=== PATIENT | female | born 1945 | race Caucasian/White ===

== ENCOUNTER 2016-12-26 05:37 | Inpatient (IN) | payer OTHER ==
[2016-12-25 09:20] VITALS: BMI 33.3
--- NOTE | 2016-12-25 12:23 | PREOPHP ---
DATE OF ADMISSION: 12/26/2016 PREOPERATIVE HISTORY AND PHYSICAL AND INTERNAL MEDICINE CONSULTATION A patient of Dr. Mg. SURGERY DATE: 12/26/[address] Mg: Thank you for asking me to see Ms. Sanchez preoperatively. HISTORY OF PRESENT ILLNESS: She is a 71-year-old woman who is entering the hospital for lumbar surg raeann, specifically lumbar decompression and fusion at L4-L5 levels and possibly above or below depend ing on findings at surgery. PAST MEDICAL HISTORY: The patient is has been fairly well. She had an episode of what sounds to abebe ve been a stroke and ultimately got a stent placed in her carotid artery which has been replaced. S he continued to be on Plavix, although is off for a preoperative time. She takes medication for thy roid disease and hypertension. She has a history of hyperlipidemia and osteoporosis as well as her back problems. CURRENT MEDICATIONS: 1. Protonix 40 mg daily. 2. L-thyroxine 0.088 mg daily. 3. Crestor 20 mg daily. 4. Z tablets 10 mg 1/2 daily. 5. Losartan 50 mg daily. 6. Amlodipine 5 mg daily. She has stopped the aspirin, tramadol, and Fosamax. ALLERGIES: THERE ARE NO ALLERGIES. 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 There is no smoking history for the last 30 yea rs and before that smoked only occasionally. She was born in [place]. She is . There are 2 grown children. She will have some help in the house postoperatively. PAST SURGICAL HISTORY: Carotid endarterectomy as noted. Was repeated after 6 months because of blo ckage. She has had a tubal ligation, shoulder arthroscopy, and appendectomy. REVIEW OF SYSTEMS: Generally unremarkable. She sees her regular physician at [place]. She can walk and carry, and she can climb stairs slowly. She has had pulmonary function tests done at [facility] were evidently normal. She does have a history of hypertension and takes Protonix regularly for GERD. Other joints that bother her are knees, as noted, but she had a CVA with left-sided symptoms , more transient, have resolved completely. She has some residual tingling in the top of her feet a nd some sciatic symptoms down her right leg. : She has frequency and needs to change her pad rar kam. PHYSICAL EXAMINATION: GENERAL: Reveals an alert, pleasant lady in no acute distress. VITAL SIGS: She is 5 feet and 1/2 inch tall, weighs 175 pounds with a BMI of 33.6. Blood pressure is 130/80, pulse is 72 and regular. She is afebrile. HEAD, EYES, EARS, NOSE, AND THROAT: Unremarkable. CHEST: Chest is clear to percussion and auscultation. HEART: Sounds are regular. No murmurs are heard. I do not hear a carotid bruit. NECK: Thyroid is not significantly enlarged. ABDOMEN: Soft without palpable mass, organ, or tenderness. EXTREMITIES: No clubbing, cyanosis, edema. Good peripheral pulses. She has some mild weakness of her foot extensors, otherwise neurologically intact today. INITIAL IMPRESSION: 1. Preoperative status, laminectomy, fusion. 2. Spinal stenosis. 3. Spondylolisthesis. 4. Hypertension. 5. Hyperlipidemia. 6. Hypothyroidism. 7. Cerebrovascular disease. 8. Carotid stent, right side. DISCUSSION: At this time, her blood pressure is well controlled. She has no cardiac symptoms, and she has good neurological recovery. She appears at this point to be stable for planned surgery. Juanjose conde is off Plavix, aspirin, and NSAIDs. She could continue those after surgery when cleared by Dr. Arturo ren. Thank you for asking us to see her at this time. Dictated By: ROSALIA FLORES MD SR/NTS Conf#: [id number] DID#: [id number]
[2016-12-26] VITALS (18 sets, daily range): BP systolic 112–138; BP diastolic 54–76; PULSE 65–94; RESP 16–20; Ht 154.9 cm; Wt 79.1 kg
[~2016-12-26] VITALS: Ht 154.9 cm; Wt 79.1 kg
[~2016-12-26 05:37] MED LIST: CEFAZOLIN 2 GM/50 ML (PMX) 50 ML IVPB ONE; LACTATED RINGER'S 1,000 ML IV* SCH
[2016-12-26] MEDS ORDERED: BUPIVACAINE 0.25% (MPF) 30 ML INJ ONE (06:53)
[2016-12-26] MEDS ORDERED: THROMBIN 5000 UNIT VIAL ONE ×2 (06:53→08:19)
[2016-12-26] MEDS ORDERED: CA CHLORIDE 10% 10 ML SYRINGE ONE (06:53)
[2016-12-26] MEDS ORDERED: BUPIVACAINE 0.25%/EPI (SDV) 30 ML INJ ONE (06:53)
[2016-12-26] MEDS ORDERED: SURGIFOAM POWDER 1 GM KIT ONE ×2 (06:54→08:19)
[2016-12-26] MEDS ORDERED: GELATIN SIZE 100 SPONGE ONE (06:55)
[2016-12-26] MEDS ORDERED: HEPARIN 1000 UNITS/ML 10 ML INJ ONE (06:57)
[2016-12-26] MEDS ORDERED: PROPOFOL 20 ML ONE (06:59)
[2016-12-26] MEDS ORDERED: LIDOCAINE 2% (SDV) 5 ML INJ ONE (06:59)
[2016-12-26] MEDS ORDERED: ROCURONIUM 50 MG INJ ONE (06:59)
--- NOTE | 2016-12-26 07:01 | HPN ---
Date/Time of Note Date/Time of Note DATE: 12/26/16 TIME: 07:01 Interval H&P Admission Note Pt. seen H&P reviewed: No system changes DAMARIS HARMON MD December 26, 2016 07:01
[2016-12-26] MEDS ORDERED: GLYCOPYRROLATE 1 MG INJ ONE (07:04)
[2016-12-26] MEDS ORDERED: CEFAZOLIN 1 GM INJ ONE (07:05)
[2016-12-26] MEDS ORDERED: EZET10TA3 PO (07:09)
[2016-12-26] MEDS ORDERED: AMLO-145 PO (07:09)
[2016-12-26] MEDS ORDERED: LOSA50TA6 PO (07:09)
[2016-12-26] MEDS ORDERED: PANT40TA4 PO (07:09)
[2016-12-26] MEDS ORDERED: PANT20TA3 PO (07:09)
[2016-12-26] MEDS ORDERED: LEVO88TA3 PO (07:09)
[2016-12-26] MEDS ORDERED: ROSU40TA35 PO (07:11)
[2016-12-26] MEDS ORDERED: CLOP75TA28 PO (07:11)
[2016-12-26] MEDS ORDERED: CALC-223 PO (07:11)
[2016-12-26] MEDS ORDERED: CHOL500010 PO (07:26)
[2016-12-26] MEDS ORDERED: ASPI-664 PO (07:26)
[2016-12-26] MEDS ORDERED: ALEN70TA30 PO (07:26)
[2016-12-26] MEDS ORDERED: LORA-186 PO (07:26)
[2016-12-26] MEDS ORDERED: TRAM50TA2 PO (07:26)
[2016-12-26] MEDS ORDERED: CALCIUM (07:28)
[2016-12-26] MEDS ORDERED: CYCLOBENZAPRINE 10 MG TAB PO PRN (07:30)
[2016-12-26] MEDS ORDERED: NALOXONE (0.4 MG/ML) INJ IV PRN (07:30)
[2016-12-26] MEDS ORDERED: HYDROmorphONE 1 MG/ML SYG IV PRN (07:30)
[2016-12-26] MEDS ORDERED: CEPASTAT LOZENGE MT PRN (07:30)
[2016-12-26] MEDS ORDERED: DIPHENHYDRAMINE 25 MG CAP PO PRN (07:30)
[2016-12-26] MEDS ORDERED: DIPHENHYDRAMINE 50 MG INJ IV PRN ×2 (07:30→10:30)
[2016-12-26] MEDS ORDERED: BISACODYL 10 MG SUPP PR PRN (07:30)
[2016-12-26] MEDS ORDERED: ACETAMINOPHEN 325 MG TAB PO PRN (07:30)
[2016-12-26] MEDS ORDERED: AL HYDROX/MG HYDROX/SIMETH 30 ML CUP PO PRN (07:30)
[2016-12-26] MEDS ORDERED: HYDROmorphONE 2 MG/ML SYG ONE (07:43)
[2016-12-26] MEDS ORDERED: GELATIN SIZE 100 SPONGE TOP ONE (08:50)
[2016-12-26] MEDS ORDERED: hydrALAzine 20 MG INJ IV PRN (10:30)
[2016-12-26] MEDS ORDERED: MEPERIDINE 25 MG INJ IV PRN (10:30)
[2016-12-26] MEDS ORDERED: ONDANSETRON 4 MG INJ IV PRN (10:30)
[2016-12-26] MEDS ORDERED: METOCLOPRAMIDE 10 MG INJ IV PRN (10:30)
[2016-12-26] MEDS ORDERED: LABETALOL HCL 20MG INJ IV PRN (10:30)
[2016-12-26] MEDS ORDERED: EPHEDrine SULFATE 50 MG/5 ML SYG IV PRN (10:30)
[2016-12-26] MEDS ORDERED: HYDROmorphONE (0.2 MG/ML) 10ML SYG IV PRN ×3 (10:30)
[2016-12-26] MEDS ORDERED: FENTAnyl 50 MCG/ML VIAL IV PRN ×3 (10:30)
[2016-12-26] MEDS ORDERED: FENTAnyl 50 MCG/ML VIAL ONE (10:58)
[2016-12-26] MEDS ORDERED: DEXAMETHASONE 4 MG/ML 1 ML INJ ONE (11:22)
[2016-12-26] MEDS ORDERED: ONDANSETRON 4 MG INJ ONE (11:22)
[2016-12-26] MEDS: HYDROmorphONE 0.2 MG/ML PCA IV SCH (11:52)
--- NOTE | 2016-12-26 12:38 | CONS ---
Date/Time of Note Date/Time of Note DATE: 12/26/16 TIME: 12:34 Assessment/Plan Assessment/Plan Problems: (1) Status post lumbar laminectomy Status: Acute Comment: Her antiplatelet agents are on hold at the present time. When she is up and moving and ready as per direction from Dr. Mg will resume this. For now she is immediately postop and without evidence of untoward reactions. Continue treatment and observe closely (2) Hypothyroidism Status: Chronic Comment: Continue replacement therapy Qualifiers: Hypothyroidism type: acquired Qualified Code: E03.9 - Acquired hypothyroidism (3) Hyperlipidemia Status: Chronic Comment: Continue statin therapy Qualifiers: Hyperlipidemia type: pure hypercholesterolemia Qualified Code: E78.00 - Pure hypercholesterolemia (4) Essential hypertension Status: Chronic Comment: Continue outpatient therapy starting tomorrow (5) Allergic rhinitis Status: Chronic Comment: Quiescent at this time Qualifiers: Allergic rhinitis trigger: unspecified Allergic rhinitis seasonality: seasonal Qualified Code: J30.2 - Seasonal allergic rhinitis, unspecified allergic rhinitis trigger Consultation Date/Type/Reason Admit Date/Time December 26, 2016 at 05:37 Initial Consult Date 12/26/2016 Type of Consultation: Internal medicine Reason for Consultation Assistance with medical issues postop Referring Provider: DAMARIS MG MD 24 HR Interval Summary Free Text/Dictation Nubia 8-year-old female seen in recovery room postop. She is fully awake and alert and oriented 4. Person place time and situation Constitutional: no complaints Detailed Summary Eyes: no complaints Respiratory: no complaints Cardiovascular: no complaints Gastrointestinal: no complaints Genitourinary: no complaints Musculoskeletal: back pain (At surgical incision site) Exam/Review of Systems Vital Signs Vitals Vital Signs Date Time Temp Pulse Resp B/P Pulse Ox O2 Delivery O2 Flow Rate FiO2 12/26/16 12:06 78 19 117/61 99 Room Air 12/26/16 11:56 97.8 Exam Constitutional: alert, oriented Neck: non-tender, supple Respiratory: clear to auscultation, normal air movement Cardiovascular: nl pulses, regular rate and rhythm Extremities: normal pulses (Moving extremities without issue) Neurological: FUR TRIMMING MACHINE OPERATOR II-XII intact, nl mental status, nl speech, nl strength Medications Medications Current Medications Lactated Ringer's 1,000 ml @ 0 mls/hr Q0M IV* ; Start 12/26/16 at 05:00; Stop 12/26/16 at 19:00 Potassium Chloride/Dextrose/ Sod Cl (D5-1/2ns + KCl 20 Meq) 1,000 ml @ 100 mls/ hr Q10H IV ; Start 12/26/16 at 07:01 Acetaminophen/ Hydrocodone Bitart ([place] (10/325)) 1 tab Q4H PRN PO PAIN LEVEL 1-5; Start 12/28/16 at 10:00 Acetaminophen/ Hydrocodone Bitart ([place] (10325)) 2 tab Q4H PRN PO PAIN LEVEL 6-10; Start 12/28/16 at 10:00 Hydromorphone HCl 0.2 mg 0.2 mg Q1H PRN IV BREAKTHROUGH PAIN; Start 12/26/16 at 07:30 Cefazolin Sodium (Ancef 1 Gm/50 ml (Pmx)) 50 ml @ 100 mls/hr Q8H IVPB ; Start 12/26/16 at 07:30; Stop 12/26/16 at 23:59 Ondansetron HCl (Zofran Inj) 4 mg Q6H PRN IV NAUSEA AND/OR VOMITING; Start at 07:30 Bisacodyl (Dulcolax Supp) 10 mg DAILY PRN [place] CONSTIPATION; Start 12/26/16 at 07 :30 Docusate Sodium (Colace) 100 mg BID PO ; Start 12/26/16 at 09:00 Pantoprazole (Protonix Iv) 40 mg DAILY@06 IV ; Start 12/27/16 at 06:00 Al Hydrox/Mg Hydrox/Simethicone (Mag-Al Plus) 15 ml Q6H PRN PO CONSTIPATION/ DYSPEPSIA; Start 12/26/16 at 07:30 Acetaminophen (Tylenol Tab) 650 mg Q4H PRN PO MCGINNIS OR TEMP GREATER THAN 101.3F; Start 12/26/16 at 07:30 Ferrous Sulfate (Ferrous Sulfate (Ec)) 325 mg TID PO ; Start 12/26/16 at 09:00 Ascorbic Acid (Vitamin C) 1,000 mg DAILY PO ; Start 12/26/16 at 09:00 Cyclobenzaprine HCl (Flexeril) 10 mg TID PRN PO MUSCLE SPASMS; Start 12/26/16 at 07:30 Phenol (Cepastat Lozenge) 1 lozenge PRN PRN MT SORE THROAT; Start 12/26/16 at 07:30 Diphenhydramine HCl (Benadryl) 25 mg Q6H PRN PO ITCHING; Start 12/26/16 at 07: 30 Diphenhydramine HCl (Benadryl) 25 mg Q6H PRN IV ITCHING; Start 12/26/16 at 07: 30 Naloxone HCl (Narcan) 0.2 mg Q2M PRN IV RR 8 BREATHS/MIN OR LESS; Start at 07:30 Hydromorphone HCl (Dilaudid WEIGHTS AND MEASURES SEALER) WEIGHTS AND MEASURES SEALER to be started in PACU Q4PCA IV Last administered on 12/26/16t 11:52; Admin Dose 6 MG; Start 12/26/16 at 07:30; Stop 12/28/16 at 10:00 Miscellaneous Information 1. Hold WEIGHTS AND MEASURES SEALER at 1,000... WEIGHTS AND MEASURES SEALER IV ; Start 12/26/16 at 07: 30 TANO MOLINA MD December 26, 2016 12:38
[2016-12-26] MEDS: DOCUSATE SODIUM 100 MG CAP PO SCH ×2 (13:00→20:35)
[2016-12-26] MEDS: FERROUS SULFATE (EC) 325 MG TAB PO SCH ×2 (13:00→20:35)
[2016-12-26] MEDS: ASCORBIC ACID 500 MG TAB PO SCH (13:00)
[2016-12-26] MEDS: ONDANSETRON 4 MG INJ IV PRN (14:50)
--- NOTE | 2016-12-26 14:51 | RADRPT ---
PROCEDURE: Intraoperative radiograph consisting 5 views. CLINICAL INDICATION: Intraoperative radiograph. TECHNIQUE: 5 views including AP and lateral projections were performed. COMPARISON: No. FINDINGS: Pedicular screws attached posterior stabilization rods are identified at the level of L4-5 with a in terbody spacer. The vertebra appear anatomically aligned. IMPRESSION: 1. Status post L4-5 posterior spinal fusion with interbody spacer. 2. Fluoro time: 104.4 seconds mGy: 78.4. RPTAT:AAJJ Physician Ivy Date Time Electronically viewed and signed by Jabier Emerson Physician on 12/26/2016 14:50 /
[2016-12-26] MEDS: CEFAZOLIN 1 GM/50 ML (PMX) 50 ML IVPB SCH ×3 (14:54→22:57)
[2016-12-26] MEDS: D5W-0.45 NACL + KCL 20 MEQ 1,000 ML IV SCH ×2 (17:01→18:05)
--- NOTE | 2016-12-26 18:59 | OPR ---
DATE OF OPERATION: 12/26/2016 PREOPERATIVE DIAGNOSES: 1. L4 to L5 unstable degenerative spondylolisthesis with stenosis and radiculopathy. 2. Osteoporosis. 3. Body mass index 33. POSTOPERATIVE DIAGNOSES: 1. L4 to L5 unstable degenerative spondylolisthesis with stenosis and radiculopathy. 2. Osteoporosis. 3. Body mass index 33. IMPLANTS: 1. NeuroStructures Palladian pedicle screws, 5.5 x 40 mm at L4 and 6.5 x 40 mm at L5. 2. [place] TLIF 8 mm cage. 3. Fibergraft. PROCEDURE PERFORMED: 1. Pedicle screw placement bilaterally at L4 and L5. 2. Central decompressive laminectomy at L4 to L5 with decompression of L4 and L5 nerve roots for stenosis. 3. Bilateral Conklin-Cheney osteotomies at L4 to L5. 4. Cement augmentation of pedicle screws (kyphoplasty at L4 and L5). 5. TLIF at L4 to L5. 6. Placement of intervertebral biomechanical device x1. 7. Posterolateral fusion at L4 to L5. 8. Iliac crest bone marrow aspiration. 9. Use of autograft. 10. Use of allograft. 11. Use of C-arm fluoroscopy with interpretation without radiologist present. 12. Use of intraoperative neuromonitoring (3.5 hours). 13. Use of operative microscope. PRIMARY SURGEON: Yovani Mg MD MIS DIRECTOR: LEONARD Moy NEED FOR SECONDARY SCHOOL PRINCIPAL: During this spinal surgical procedure, my department assistant was used to retract and protect the spinal nerves and dural sac. My department assistant also employed the suction catheters to evacuate blood from the surgical field to improve visualization of the neural structures. The department assistant was medically necessary to facilitate the completion of the surgery in a safe and expeditious manner. State of [place] regulations, as well as hospital bylaws, preclude the use of non-licensed health care personnel, such as operating room technicians, to perform these functions. FINDINGS: Neuromonitoring at the start of the case revealed bilateral L3 amplitude down 30%, right L4 amplitude down 40%, right L5 amplitude down 40%. At the end of the case, nerve signals returned to normal. The patient had osteoporosis and unstable listhesis at L4 to L5 with central and foraminal stenosis. ESTIMATED BLOOD LOSS: 150 mL. DRAINS: 1. SPECIMENS: L4 to L5 disk was sent to pathology. COMPLICATIONS OF PROCEDURES: None. ANESTHESIOLOGIST: Dr. Chatman. TYPE OF ANESTHESIA: General. INDICATIONS FOR PROCEDURE: This is a 71-year-old female with lumbosacral radiculopathy in the setting of unstable listhesis at L4 to L5. Although there is mild adjacent disease, I felt that the majority of her symptoms are coming from the L4 to L5 level and therefore, I recommended the above procedure. Preoperatively we discussed the risks, benefits and alternatives. She understood and wished to proceed. DESCRIPTION OF PROCEDURE IN DETAIL: The patient was identified in the preoperative holding area, given IV antibiotics, and taken to the operating room , where she was successfully placed under general anesthesia. Neuromonitoring leads were placed. Sequential compression devices were applied. A Jeffries catheter was introduced. Neuromonitoring was utilized during the procedure for 3.5 hours to include SSEP, MEP, and EMG. This was performed by Apliiq. Start time was 8 a.m., closure time was 11:30 a.m. The patient was placed on the operating table in the prone position over a Gautam frame. All bony prominences were well padded. The back was then prepped and draped in the usual sterile fashion. Using the C-arm fluoroscope, I identified the incision site. I anesthetized the skin, subcutaneous tissue, and paraspinal musculature with 0.25% Marcaine and epinephrine. I then made an incision over the L4 to L5 level. Incision was taken down through dorsal fascia, which was incised with Bovie cautery. I then subperiosteally dissected the L4 and L5 lamina out to the transverse processes. I then took imaging studies to confirm the correct levels. Once this was confirmed, I identified the start hole for the pedicle screws. The patient had osteoporosis with a BMI of 33 complicating the procedure and adding at least 30 minutes to the surgical procedure. I made the dispatcher ship pilot holes for the pedicle screws at L4 and L5 bilaterally and tapped the screw holes. This provided a cavity into the vertebral bodies of L4 and L5, and I injected cement into the vertebral bodies of L4 and L5 (kyphoplasty at L4 and L5) in order to augment the screw and increase the purchase to decrease the risk of pullout given her severe osteoporosis. Once the cement was in place, I placed the appropriate pedicle screws bilaterally at L4 and L5. Once the screws were in place, I stimulated each of the screws and there was no evidence of cortical breach. I then performed a right iliac crest bone marrow aspiration. The blood was spun down using the Siklu device. Next, the microscope was brought in and a central decompressive laminectomy was performed at the L4 to L5 level. I decompressed the central canal and the L4 and L5 nerve roots bilaterally. This decompression was done in order to alleviate the stenosis and this is beyond what is required in order to perform an interbody fusion. The patient had an anterolisthesis that was not fully reduced and therefore, I performed bilateral Conklin-Cheney osteotomies at L4 to L5, removing the facet joints and pars in order to reduce the listhesis. Once this was done, I made an annulotomy from the right side and performed a radical diskectomy. I placed various trials and chose the appropriate graft height. I then took the PEEK cage, within which I placed allograft and I impacted the intervertebral biomechanical device into the L4 to L5 level to complete the fusion at this level. Next, the Gautam frame was let down. I irrigated the wound. Valsalva maneuver was performed and there was no leak of CSF, and the microscope was taken off the field. I then placed 40 mm rods bilaterally with tightening of the set screws. I then prepared the posterolateral gutters and placed local autograft and allograft for posterolateral fusion at L4 to L5 bilaterally. I then took final AP and lateral images and I was happy with placement of the hardware and alignment of the spine. The wound was irrigated. Valsalva maneuver was performed and there was no leak of CSF. I passed an epidural catheter through which I injected 100 mcg of fentanyl mixed with 2 mL of Marcaine 0.25% preservative-free, and the catheter was pulled. I took the platelet-poor plasma and mixed this with thrombin and injected this over the dura for hemostatic purposes. I then placed a deep subfascial drain and closed the deep fascia with a #1 Stratafix suture. I then closed the subcutaneous tissue with a 2-0 Vicryl stitch. A 4-0 Monocryl closure was then performed. Dermabond and sterile dressings were then applied. The patient was then awakened from anesthesia and taken to recovery room in stable condition. Lap, sponge, and instrument counts were correct x2. There were no apparent complications during the procedure. The patient will be admitted to the orthopedic caicedo for routine postoperative care to include pain control, neurovascular checks, antibiotics, and physical therapy. Dictated By: YOVANI AJMES/WAN Conf#: [id number] DID#: [id number] MTDD
[2016-12-26] MEDS: ROSUVASTATIN CALCIUM 40 MG TABLET PO SCH (20:35)
[2016-12-27] MEDS: D5W-0.45 NACL + KCL 20 MEQ 1,000 ML IV SCH ×4 (03:01→23:01)
[2016-12-27 04:13] VITALS: BP 117/62; PULSE 69; RESP 19
[2016-12-27 05:06] LABS: ADD SCAN DIFF NO
[2016-12-27 05:07] LABS: ABNORMAL IP MESSAGE 1; BASOPHILS % 0.1 % (0.0-2.0); HEMATOCRIT 31.1 % (37.0-47.0); LYMPHOCYTES # 0.6 10^3/ul (0.8-2.9); MEAN CORPUSCULAR HEMOGLOBIN 29.4 pg (29.0-33.0); MEAN CORPUSCULAR HGB CONC 32.2 g/dl (32.0-37.0); MEAN CORPUSCULAR VOLUME 91.5 fl (82.0-101.0); MEAN PLATELET VOLUME 9.6 fl (7.4-10.4); MONOCYTE # 0.6 10^3/ul (0.3-0.9); NEUTROPHIL # 10.5 10^3/ul (1.6-7.5); NEUTROPHILS % 89.5 % (39.0-77.0); PLATELET COUNT 286 10^3/UL (140-415); RED CELL DISTRIBUTION WIDTH 14.3 % (11.5-14.5); WHITE BLOOD COUNT 11.8 10^3/ul (4.8-10.8)
[2016-12-27 05:26] LABS: POTASSIUM 4.6 mmol/L (3.5-5.1)
[2016-12-27 05:35] LABS: CREATININE 0.94 mg/dl (0.44-1.00); MAGNESIUM 2.1 mg/dl (1.7-2.5)
[2016-12-27] MEDS ORDERED: PANTOPRAZOLE 40 MG INJ IV SCH (06:00)
[2016-12-27] MEDS: LEVOTHYROXINE 88 MCG TAB PO SCH (06:04)
[2016-12-27 08:04] VITALS: BP 124/67; RESP 19
--- NOTE | 2016-12-27 08:24 | OPPN ---
Date/Time of Note Date/Time of Note DATE: 12/27/16 TIME: 08:24 Post-Anesthesia Notes Post-Anesthesia Note Last documented vital signs Vital Signs Date Time Temp Pulse Resp B/P Pulse Ox O2 Delivery O2 Flow Rate FiO2 12/27/16 08:04 97.2 73 19 124/67 100 12/27/16 04:13 Nasal Cannula 2.0 Activity: WNL Respiratory function: WNL Cardiovascular function: WNL Mental status: Baseline Pain reasonably controlled: Yes Hydration appropriate: Yes Nausea/Vomiting absent: Yes FABIENNE ARDON December 27, 2016 08:24
--- NOTE | 2016-12-27 08:41 | PN ---
Date/Time of Note Date/Time of Note DATE: 12/27/16 TIME: 08:37 Assessment/Plan VTE Prophylaxis VTE Prophylaxis Intervention: SCD's Lines/Catheters IV Catheter Type (from Nrsg): Peripheral IV Urinary Cath still in place: Yes Subjective 24 Hr Interval Summary Free Text/Dictation 71 yr old woman first dfay post op back surgery awake alert, only moderate discomfort vs ok hx of hpb, lipids, hypothyroid, cva w carotid stent currently off plavix minimal amb yesterday, legs feel better still on geriatric physician on exam alert oriented lungs clear, hr ok, no edema, moves all four plan cont with increaing mobility as tolerates cont with current meds Exam/Review of Systems Vital Signs Vitals Vital Signs Date Time Temp Pulse Resp B/P Pulse Ox O2 Delivery O2 Flow Rate FiO2 12/27/16 08:04 97.2 73 19 124/67 100 12/27/16 04:13 Nasal Cannula 2.0 Intake and Output 12/26/16 12/26/16 12/27/16 15:00 23:00 07:00 Intake Total 1650 ml 500 ml 1850 ml Output Total 735 ml 600 ml 1720 ml Balance 915 ml -100 ml 130 ml Results Result Diagram: 12/27/16 0438 12/27/16 0438 Results 24 hrs Laboratory Tests Test 12/27/16 04:38 White Blood Count 11.8 H Red Blood Count 3.40 L Hemoglobin 10.0 L Hematocrit 31.1 L Mean Corpuscular Volume 91.5 Mean Corpuscular Hemoglobin 29.4 Mean Corpuscular Hemoglobin Concent 32.2 Red Cell Distribution Width 14.3 Platelet Count 286 Mean Platelet Volume 9.6 Neutrophils % 89.5 H Lymphocytes % 5.0 L Monocytes % 5.0 Eosinophils % 0.0 Basophils % 0.1 Nucleated Red Blood Cells % 0.0 Neutrophils # 10.5 H Lymphocytes # 0.6 L Monocytes # 0.6 Eosinophils # 0.0 Basophils # 0.0 Nucleated Red Blood Cells # 0.0 Sodium Level 137 Potassium Level 4.6 Chloride Level 107 Carbon Dioxide Level 21 Anion Gap 14 Blood Urea Nitrogen 19 Creatinine 0.94 Glucose Level 168 Calcium Level 8.0 L Magnesium Level 2.1 Medications Medications Current Medications Potassium Chloride/Dextrose/ Sod Cl (D5-1/2ns + KCl 20 Meq) 1,000 ml @ 100 mls/ hr Q10H IV Last administered on 12/27/16 04:06; Admin Dose 100 MLS/HR; Start 12/26/16 at 07:01 Acetaminophen/ Hydrocodone Bitart ([place] (10325)) 1 tab Q4H PRN PO PAIN LEVEL 1-5; Start 12/28/16 at 10:00 Acetaminophen/ Hydrocodone Bitart ([place] (10/325)) 2 tab Q4H PRN PO PAIN LEVEL 6-10; Start 12/28/16 at 10:00 Hydromorphone HCl (Dilaudid) 0.2 mg Q1H PRN IV BREAKTHROUGH PAIN; Start at 07:30 Ondansetron HCl (Zofran Inj) 4 mg Q6H PRN IV NAUSEA AND/OR VOMITING Last administered on 12/26/16 14:50; Admin Dose 4 MG; Start 12/26/16 at 07:30 Bisacodyl (Dulcolax Supp) 10 mg DAILY PRN [place] CONSTIPATION; Start 12/26/16 at 07 :30 Docusate Sodium (Colace) 100 mg BID PO Last administered on 12/26/16 20:35; Admin Dose 100 MG; Start 12/26/16 at 09:00 Pantoprazole (Protonix Iv) 40 mg DAILY@06 IV Last administered on 12/27/16 06: 04; Admin Dose 40 MG; Start 12/27/16 at 06:00 Al Hydrox/Mg Hydrox/Simethicone (Mag-Al Plus) 15 ml Q6H PRN PO CONSTIPATION/ DYSPEPSIA; Start 12/26/16 at 07:30 Acetaminophen (Tylenol Tab) 650 mg Q4H PRN PO MCGINNIS OR TEMP GREATER THAN 101.3F; Start 12/26/16 at 07:30 Ferrous Sulfate (Ferrous Sulfate (Ec)) 325 mg TID PO Last administered on 20:35; Admin Dose 325 MG; Start 12/26/16 at 09:00 Ascorbic Acid (Vitamin C) 1,000 mg DAILY PO ; Start 12/26/16 at 09:00 Cyclobenzaprine HCl (Flexeril) 10 mg TID PRN PO MUSCLE SPASMS; Start 12/26/16 at 07:30 Phenol (Cepastat Lozenge) 1 lozenge PRN PRN MT SORE THROAT Last administered on 12/26/16 20:37; Admin Dose 1 LOZENGE; Start 12/26/16 at 07:30 Diphenhydramine HCl (Benadryl) 25 mg Q6H PRN PO ITCHING Last administered on 22:58; Admin Dose 25 MG; Start 12/26/16 at 07:30 Diphenhydramine HCl (Benadryl) 25 mg Q6H PRN IV ITCHING; Start 12/26/16 at 07: 30 Naloxone HCl (Narcan) 0.2 mg Q2M PRN IV RR 8 BREATHS/MIN OR LESS; Start at 07:30 Hydromorphone HCl (Dilaudid WELDING MACHINE OPERATOR ULTRASONIC) WELDING MACHINE OPERATOR ULTRASONIC to be started in PACU Q4PCA IV Last administered on 12/26/16 11:52; Admin Dose 6 MG; Start 12/26/16 at 07:30; Stop 12/28/16 at 10:00 Miscellaneous Information 1. Hold WELDING MACHINE OPERATOR ULTRASONIC at 1,000... WELDING MACHINE OPERATOR ULTRASONIC IV ; Start 12/26/16 at 07: 30 Amlodipine Besylate (Norvasc) 5 mg DAILY PO ; Start 12/27/16 at 09:00 Cholecalciferol (Vitamin D) 5,000 unit DAILY PO ; Start 12/27/16 at 09:00 EZETIMIBE (Zetia) 10 mg DAILY PO ; Start 12/27/16 at 09:00 Loratadine (Claritin) 10 mg DAILY PO ; Start 12/27/16 at 09:00 Losartan Potassium (Cozaar) 50 mg DAILY PO ; Start 12/27/16 at 09:00 Pantoprazole (Protonix Tab) 40 mg DAILY PO ; Start 12/27/16 at 09:00 Rosuvastatin Calcium (Crestor) 40 mg QHS PO Last administered on 12/26/16 20: 35; Admin Dose 40 MG; Start 12/26/16 at 21:00 ROSALIA FLORES MD December 27, 2016 08:41
[2016-12-27] MEDS: FERROUS SULFATE (EC) 325 MG TAB PO SCH ×3 (09:00→19:51)
[2016-12-27] MEDS: PANTOPRAZOLE (EC) 40 MG TAB PO SCH (09:38)
[2016-12-27] MEDS: LORATADINE 10 MG TAB PO SCH (09:39)
[2016-12-27] MEDS: CHOLECALCIFEROL 1,000 UNIT TAB PO SCH (09:39)
[2016-12-27] MEDS: DOCUSATE SODIUM 100 MG CAP PO SCH ×2 (09:39→19:51)
[2016-12-27] MEDS: ASCORBIC ACID 500 MG TAB PO SCH (09:40)
[2016-12-27] MEDS: AMLODIPINE 5 MG TAB PO SCH (09:40)
[2016-12-27] MEDS: EZETIMIBE 10 MG TAB PO SCH (09:40)
[2016-12-27] MEDS: LOSARTAN 50 MG TAB PO SCH (09:40)
--- NOTE | 2016-12-27 10:05 | PN ---
Date/Time of Note Date/Time of Note DATE: 12/27/16 TIME: 10:04 Assessment/Plan Lines/Catheters IV Catheter Type (from Nrsg): Peripheral IV Rey in Place (from Nrsg): Yes Assessment/Plan Assessment/Plan doing well cont pain control and pt d/c geochemical laboratory technician and rey tomorrow Subjective 24 Hr Interval Summary c/o pain in back, improved nausea Exam/Review of Systems Vital Signs Vitals Vital Signs Date Time Temp Pulse Resp B/P Pulse Ox O2 Delivery O2 Flow Rate FiO2 12/27/16 08:04 97.2 73 19 124/67 100 12/27/16 04:13 Nasal Cannula 2.0 Intake and Output 12/26/16 12/26/16 12/27/16 15:00 23:00 07:00 Intake Total 1650 ml 500 ml 1850 ml Output Total 735 ml 600 ml 1720 ml Balance 915 ml -100 ml 130 ml Exam Free Text/Dictation nvi Results Result Diagram: 12/27/16 0438 12/27/16 0438 DAMARIS HARMON MD December 27, 2016 10:05
[2016-12-27] MEDS: HYDROmorphONE 0.2 MG/ML PCA IV SCH (14:59)
[2016-12-27] MEDS: ROSUVASTATIN CALCIUM 40 MG TABLET PO SCH (19:51)
[2016-12-27 20:58] VITALS: BP 139/65; RESP 20
[2016-12-28] MEDS: D5W-0.45 NACL + KCL 20 MEQ 1,000 ML IV SCH ×2 (02:11→19:01)
[2016-12-28 05:14] LABS: ADD SCAN DIFF NO
[2016-12-28 05:21] LABS: BASOPHIL # 0.1 10^3/ul (0.0-0.1); BASOPHILS % 0.5 % (0.0-2.0); EOSINOPHILS # 0.1 10^3/ul (0.0-0.5); EOSINOPHILS % 0.7 % (0.0-7.0); HEMATOCRIT 31.5 % (37.0-47.0); HEMOGLOBIN 10.1 g/dl (12.0-16.0); LYMPHOCYTES # 1.8 10^3/ul (0.8-2.9); LYMPHOCYTES % 16.6 % (15.0-51.0); MEAN CORPUSCULAR HEMOGLOBIN 29.8 pg (29.0-33.0); MEAN CORPUSCULAR HGB CONC 32.1 g/dl (32.0-37.0); MEAN CORPUSCULAR VOLUME 92.9 fl (82.0-101.0); MONOCYTE # 1.1 10^3/ul (0.3-0.9); MONOCYTES % 9.9 % (0.0-11.0); NEUTROPHIL # 7.8 10^3/ul (1.6-7.5); NEUTROPHILS % 71.5 % (39.0-77.0); PLATELET COUNT 315 10^3/UL (140-415); RED BLOOD COUNT 3.39 10^6/ul (4.20-5.40); RED CELL DISTRIBUTION WIDTH 14.8 % (11.5-14.5); WHITE BLOOD COUNT 10.9 10^3/ul (4.8-10.8)
[2016-12-28] MEDS: LEVOTHYROXINE 88 MCG TAB PO SCH (05:28)
[2016-12-28] MEDS: PANTOPRAZOLE (EC) 40 MG TAB PO SCH (05:29)
[2016-12-28 05:47] LABS: CALCIUM 8.3 mg/dl (8.4-10.2); CREATININE 0.89 mg/dl (0.44-1.00); MAGNESIUM 2.1 mg/dl (1.7-2.5); POTASSIUM 5.3 mmol/L (3.5-5.1)
[2016-12-28] MEDS ORDERED: PANTOPRAZOLE (EC) 40 MG TAB PO SCH (06:00)
--- NOTE | 2016-12-28 08:02 | PN ---
Date/Time of Note Date/Time of Note DATE: 12/28/16 TIME: 08:00 Assessment/Plan Lines/Catheters IV Catheter Type (from Nrsg): Peripheral IV Rey in Place (from Nrsg): Yes Assessment/Plan Assessment/Plan s/p TLIF continue PT, ambulate continue pain control plan to D/C SQUAD BOSS and rey this AM as ordered hyperkalemia - management per Dr. Armstrong Subjective 24 Hr Interval Summary pt c/o low back spasm, nausea 2/2 pain medications Exam/Review of Systems Vital Signs Vitals Vital Signs Date Time Temp Pulse Resp B/P Pulse Ox O2 Delivery O2 Flow Rate FiO2 12/28/16 04:46 18 12/27/16 20:58 98.6 73 139/65 100 12/27/16 04:13 Nasal Cannula 2.0 Intake and Output 12/27/16 12/27/16 12/28/16 15:00 23:00 07:00 Intake Total 2640 ml Output Total 2400 ml 2600 ml Balance 240 ml -2600 ml Exam Free Text/Dictation NVID dressing and drain C/D/I drain output 100cc/last shift - will keep in no calf TTP/cording, no SOB, no LE edema Results Result Diagram: 12/28/1643912/28/16 0440 MELISA RITTER PA-C December 28, 2016 08:02
[2016-12-28] MEDS: ONDANSETRON 4 MG INJ IV PRN (08:03)
[2016-12-28 08:15] VITALS: BP 157/69; PULSE 90; RESP 20
[2016-12-28] MEDS: DOCUSATE SODIUM 100 MG CAP PO SCH ×2 (09:00→20:28)
[2016-12-28] MEDS: CHOLECALCIFEROL 1,000 UNIT TAB PO SCH (09:00)
[2016-12-28] MEDS: EZETIMIBE 10 MG TAB PO SCH (09:00)
[2016-12-28] MEDS: FERROUS SULFATE (EC) 325 MG TAB PO SCH ×3 (09:00→20:28)
[2016-12-28] MEDS: AMLODIPINE 5 MG TAB PO SCH (09:00)
[2016-12-28] MEDS: LOSARTAN 50 MG TAB PO SCH (09:00)
[2016-12-28] MEDS: ASCORBIC ACID 500 MG TAB PO SCH (09:00)
[2016-12-28] MEDS: LORATADINE 10 MG TAB PO SCH (09:00)
[2016-12-28 09:10] VITALS: BP 136/65; RESP 20
[2016-12-28] MEDS ORDERED: HYDROCODONE/APAP (10/325) TAB PO PRN ×2 (10:00)
[2016-12-28] MEDS ORDERED: ONDANSETRON 4 MG INJ IV STA (12:16)
[2016-12-28] MEDS ORDERED: MAGNESIUM CITRATE 300 ML BTL PO ONE (13:30)
[2016-12-28 16:39] VITALS: BP 145/65; RESP 20
[2016-12-28] MEDS: ROSUVASTATIN CALCIUM 40 MG TABLET PO SCH (20:28)
[2016-12-28 20:41] VITALS: BP 120/58; RESP 20
[2016-12-29 04:49] LABS: ADD SCAN DIFF NO
[2016-12-29 04:57] LABS: BASOPHILS % 0.4 % (0.0-2.0); EOSINOPHILS # 0.2 10^3/ul (0.0-0.5); EOSINOPHILS % 1.9 % (0.0-7.0); HEMATOCRIT 31.4 % (37.0-47.0); HEMOGLOBIN 10.1 g/dl (12.0-16.0); LYMPHOCYTES # 1.7 10^3/ul (0.8-2.9); LYMPHOCYTES % 19.1 % (15.0-51.0); MEAN CORPUSCULAR HGB CONC 32.2 g/dl (32.0-37.0); MEAN CORPUSCULAR VOLUME 90.2 fl (82.0-101.0); MEAN PLATELET VOLUME 9.5 fl (7.4-10.4); MONOCYTE # 0.9 10^3/ul (0.3-0.9); MONOCYTES % 9.4 % (0.0-11.0); NEUTROPHIL # 6.3 10^3/ul (1.6-7.5); NEUTROPHILS % 68.8 % (39.0-77.0); PLATELET COUNT 297 10^3/UL (140-415); RED BLOOD COUNT 3.48 10^6/ul (4.20-5.40); RED CELL DISTRIBUTION WIDTH 14.6 % (11.5-14.5); WHITE BLOOD COUNT 9.1 10^3/ul (4.8-10.8)
[2016-12-29] MEDS: D5W-0.45 NACL + KCL 20 MEQ 1,000 ML IV SCH ×2 (05:01→15:01)
[2016-12-29 05:21] LABS: CALCIUM 8.2 mg/dl (8.4-10.2); CREATININE 0.93 mg/dl (0.44-1.00); MAGNESIUM 2.5 mg/dl (1.7-2.5); POTASSIUM 4.4 mmol/L (3.5-5.1)
[2016-12-29] MEDS: LEVOTHYROXINE 88 MCG TAB PO SCH (06:07)
[2016-12-29 07:00] VITALS: BP 137/65; RESP 20
--- NOTE | 2016-12-29 08:34 | DS ---
DATE OF ADMISSION: 12/26/2016 DATE OF DISCHARGE: 12/29/2016 ADMITTING DIAGNOSIS: Spondylolisthesis. DISCHARGE DIAGNOSES: Spondylolisthesis. PROCEDURE: The patient was taken to the operating room on December 26 and underwent lumbar fusion. HOSPITAL COURSE: The patient was admitted to the orthopedic caicedo after undergoing the above procedu re. Her postoperative course was uncomplicated. By postoperative day 3, she was deemed stable for discharge with followup arranged with the undersigned. Dictated By: DAMARIS JAMES/WAN Conf#: [id number] DID#: [id number]
[2016-12-29] MEDS: PANTOPRAZOLE (EC) 40 MG TAB PO SCH (08:51)
--- NOTE | 2016-12-29 08:53 | PN ---
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, lungs clear, abd soft active bs, dressing dry, no edema ok for dc from my standpoint on usual home meds Exam/Review of Systems Vital Signs Vitals Vital Signs Date Time Temp Pulse Resp B/P Pulse Ox O2 Delivery O2 Flow Rate FiO2 12/29/16 07:00 98.6 80 20 137/65 98 12/28/16 12:19 Room Air 12/28/16 08:15 2.0 Intake and Output 12/28/16 12/28/16 12/29/16 15:00 23:00 07:00 Intake Total 480 ml 240 ml Output Total 400 ml 50 ml Balance 80 ml 190 ml Results Result Diagram: 12/29/16 0430 12/29/16 0430 Results 24 hrs Laboratory Tests Test 12/29/16 04:30 White Blood Count 9.1 Red Blood Count 3.48 L Hemoglobin 10.1 L Hematocrit 31.4 L Mean Corpuscular Volume 90.2 Mean Corpuscular Hemoglobin 29.0 Mean Corpuscular Hemoglobin Concent 32.2 Red Cell Distribution Width 14.6 H Platelet Count 297 Mean Platelet Volume 9.5 Neutrophils % 68.8 Lymphocytes % 19.1 Monocytes % 9.4 Eosinophils % 1.9 Basophils % 0.4 Nucleated Red Blood Cells % 0.0 Neutrophils # 6.3 Lymphocytes # 1.7 Monocytes # 0.9 Eosinophils # 0.2 Basophils # 0.0 Nucleated Red Blood Cells # 0.0 Sodium Level 135 Potassium Level 4.4 Chloride Level 106 Carbon Dioxide Level 27 Anion Gap 6 L Blood Urea Nitrogen 14 Creatinine 0.93 Glucose Level 115 Calcium Level 8.2 L Magnesium Level 2.5 Medications Medications Current Medications Potassium Chloride/Dextrose/ Sod Cl (D5-1/2ns + KCl 20 Meq) 1,000 ml @ 100 mls/ hr Q10H IV Last administered on 12/28/16t 02:11; Admin Dose 100 MLS/HR; Start 12/26/16 at 07:01 Acetaminophen/ Hydrocodone Bitart ([place] (325)) 1 tab Q4H PRN PO PAIN LEVEL 1-5; Start 12/28/16 at 10:00 Acetaminophen/ Hydrocodone Bitart ([place] (10325)) 2 tab Q4H PRN PO PAIN LEVEL 6-10; Start 12/28/16 at 10:00 Hydromorphone HCl (Dilaudid) 0.2 mg Q1H PRN IV BREAKTHROUGH PAIN; Start at 07:30 Ondansetron HCl (Zofran Inj) 4 mg Q6H PRN IV NAUSEA AND/OR VOMITING Last administered on 12/28/16 08:03; Admin Dose 4 MG; Start 12/26/16 at 07:30 Bisacodyl (Dulcolax Supp) 10 mg DAILY PRN CA CONSTIPATION; Start 12/26/16 at 07 :30 Docusate Sodium (Colace) 100 mg BID PO Last administered on 12/28/16 20:28; Admin Dose 100 MG; Start 12/26/16 at 09:00 Al Hydrox/Mg Hydrox/Simethicone (Mag-Al Plus) 15 ml Q6H PRN PO CONSTIPATION/ DYSPEPSIA Last administered on 12/28/16 12:03; Admin Dose 15 ML; Start at 07:30 Acetaminophen (Tylenol Tab) 650 mg Q4H PRN PO MCGINNIS OR TEMP GREATER THAN 101.3F Last administered on 12/28/16 18:24; Admin Dose 650 MG; Start 12/26/16 at 07:30 Ferrous Sulfate (Ferrous Sulfate (Ec)) 325 mg TID PO Last administered on 20:28; Admin Dose 325 MG; Start 12/26/16 at 09:00 Ascorbic Acid (Vitamin C) 1,000 mg DAILY PO Last administered on 12/27/16 09: 40; Admin Dose 1,000 MG; Start 12/26/16 at 09:00 Cyclobenzaprine HCl (Flexeril) 10 mg TID PRN PO MUSCLE SPASMS; Start 12/26/16 at 07:30 Phenol (Cepastat Lozenge) 1 lozenge PRN PRN MT SORE THROAT Last administered on 12/26/16 20:37; Admin Dose 1 LOZENGE; Start 12/26/16 at 07:30 Diphenhydramine HCl (Benadryl) 25 mg Q6H PRN PO ITCHING Last administered on 22:58; Admin Dose 25 MG; Start 12/26/16 at 07:30 Diphenhydramine HCl (Benadryl) 25 mg Q6H PRN IV ITCHING; Start 12/26/16 at 07: 30 Naloxone HCl (Narcan) 0.2 mg Q2M PRN IV RR 8 BREATHS/MIN OR LESS; Start at 07:30 Miscellaneous Information 1. Hold [employer]GER at 1,000... [employer] MA[employer]GER IV ; Start 12/26/16 at 07: 30 Amlodipine Besylate (Norvasc) 5 mg DAILY PO Last administered on 12/27/16 09: 40; Admin Dose 5 MG; Start 12/27/16 at 09:00 Cholecalciferol (Vitamin D) 5,000 unit DAILY PO Last administered on 12/27/16 09:39; Admin Dose 5,000 UNIT; Start 12/27/16 at 09:00 EZETIMIBE (Zetia) 10 mg DAILY PO Last administered on 12/27/16 09:40; Admin Dose 10 MG; Start 12/27/16 at 09:00 Loratadine (Claritin) 10 mg DAILY PO Last administered on 12/27/16 09:39; Admin Dose 10 MG; Start 12/27/16 at 09:00 Losartan Potassium (Cozaar) 50 mg DAILY PO Last administered on 12/27/16 09:40 ; Admin Dose 50 MG; Start 12/27/16 at 09:00 Pantoprazole (Protonix Tab) 40 mg DAILY PO Last administered on 12/28/16 05:29 ; Admin Dose 40 MG; Start 12/27/16 at 09:00 Rosuvastatin Calcium (Crestor) 40 mg QHS PO Last administered on 12/28/16 20: 28; Admin Dose 40 MG; Start 12/26/16 at 21:00 ROSALIA FLORES MD December 29, 2016 08:53
[2016-12-29] MEDS: FERROUS SULFATE (EC) 325 MG TAB PO SCH ×2 (08:54→13:01)
[2016-12-29] MEDS: DOCUSATE SODIUM 100 MG CAP PO SCH (08:55)
[2016-12-29] MEDS: CHOLECALCIFEROL 1,000 UNIT TAB PO SCH (08:55)
[2016-12-29] MEDS: LORATADINE 10 MG TAB PO SCH (08:55)
[2016-12-29] MEDS: ASCORBIC ACID 500 MG TAB PO SCH (08:55)
[2016-12-29] MEDS: EZETIMIBE 10 MG TAB PO SCH (08:55)
[2016-12-29] MEDS: LOSARTAN 50 MG TAB PO SCH (08:56)
[2016-12-29] MEDS: AMLODIPINE 5 MG TAB PO SCH (08:56)
== END 2016-12-29 15:50 | disposition home or self-care (01) | DRG 460 ==
LOC: REC 05:37 → MS1 12:56
PROVIDERS: ADMIT Specialist; ATTEND Specialist
PROC: 0SG0071 Fusion of Lumbar Vertebral Joint with Autologous Tissue Substitute, Posterior Approach, Posterior Column, Open Approach (ICD-10-PCS; 2016-12-26)
PROC: 0QU03JZ Supplement Lumbar Vertebra with Synthetic Substitute, Percutaneous Approach (ICD-10-PCS; 2016-12-26)
PROC: 07DR3ZZ Extraction of Iliac Bone Marrow, Percutaneous Approach (ICD-10-PCS; 2016-12-26)
PROC: 4A11X4G Monitoring of Peripheral Nervous Electrical Activity, Intraoperative, External Approach (ICD-10-PCS; 2016-12-26)
PROC: 0SG00AJ Fusion of Lumbar Vertebral Joint with Interbody Fusion Device, Posterior Approach, Anterior Column, Open Approach (ICD-10-PCS; principal; 2016-12-26 07:00)
DX: M43.16 Spondylolisthesis, lumbar region (principal); E87.5 Hyperkalemia; I10 Essential (primary) hypertension; M48.06 Spinal stenosis, lumbar region; M54.16 Radiculopathy, lumbar region; M81.0 Age-related osteoporosis without current pathological fracture; E78.5 Hyperlipidemia, unspecified; K21.9 Gastro-esophageal reflux disease without esophagitis; E03.9 Hypothyroidism, unspecified; Z86.73 Personal history of transient ischemic attack (TIA), and cerebral infarction without residual deficits
CPT/HCPCS: 72110; 80048; 83735; 85025; 86999; 87086; 97116; 97163; 97530; C1713; C9113; J0690; J1100; J1170; J1644; J2405; J3010; J3480